=== PATIENT | male | born 2000 | race Two or more races ===

== ENCOUNTER 2023-10-21 05:59 | Emergency (ER) | payer BC, SELFPAY ==
[2023-10-21 06:02] VITALS: BP 127/92
--- NOTE | 2023-10-21 06:25 | ED.GENMED ---
History of Present Illness
General
Chief Complaint: Dental Problem
Source: patient
Exam Limitations: none
Time Seen by Provider: 10/21/23 06:10
Nursing documentation reviewed up to this point in time: agreed with
History of Present Illness
History of Present Illness:
23-year-old male with past medical history of PUD/gastric ulcer presents to the emergency room for evaluation of dental pain. Patient reports onset of symptoms about a week ago and they have been constant and progressive since then. He reports
pain in the right lower molar. He reports some mild swelling. Pain worse with biting and opening his mouth very wide. No clear relieving factors. He denies any associated fevers or chills. He denies any other complaints. Denies any trauma. He
says he had similar symptoms with a dental abscess on the left about a year ago.
Review of Systems
Review of Systems
All Other Systems: ROS reviewed and negative except as documented in HPI and ROS
Constitutional: Denies fever or chills
EENT: Reports other (Dental pain)
Phy Exam
Physical Exam
Physical Exam:
General: Well appearing and non-toxic
HEENT: Airway intact, handling secretions, no significant facial swelling; generally good dentition, no visible fractures or caries, patient has tenderness to percussion right lower molar, no localized swelling intraorally, no tongue elevation,
midline uvula, no oropharyngeal erythema, no tonsillar exudate
Neck: appears supple, full range of motion without pain
CV: No evidence of cyanosis
Resp: No accessory muscle use
Abd: Non-distended
Extremities: No deformities
Neuro: Alert
Psych: Normal affect
Skin: Intact
Scores
Heart Failure Risk
Heart Failure Risk Score: Not Applicable
Heart Score for Chest Pain Patients
STEMI patient?: Not applicable
Withdrawal Assessment of Alcohol
Withdrawal Assessment Completed?: Not applicable
Course
Orders/Labs/Results
Orders:
Orders
10/21/23 06:39
Amoxicillin 875 mg/Clav 125 mg [Augmentin 875 mg/125 mg] 1 tablet PO NOW STA
10/21/23 06:51
Oxycodone [Roxicodone] 5 mg PO NOW STA
Vital Signs
Initial and Last Documented VS:
Initial Vital Signs
Temp Pulse Resp BP Pulse Ox
37.2 C 65 18 127/92 95
10/21/23 06:02 10/21/23 06:02 10/21/23 06:02 10/21/23 06:02 10/21/23 06:02
Last Documented Vital Signs
Temp Pulse Resp BP Pulse Ox
37.2 C 65 18 127/92 95
10/21/23 06:02 10/21/23 06:02 10/21/23 06:02 10/21/23 06:02 10/21/23 06:02
Procedures
Dentalgia
Dental Block: In. Jaden. Block
Tooth Number: 32
Abcess drained?: No
Pt tolerated procedure well w/ no immediate adverse effects?: Yes
MDM/Problems Addressed
Differential Diagnosis Includes:
Dental abscess, dental fracture, dental caries
MDM/Problems Addressed:
23-year-old male presents with right lower molar pain ongoing for the past week. Vital signs normal. Exam as above. Suspect dental infection/periapical abscess. Will treat with antibiotics. Inferior alveolar block for pain control. Patient is
allergic to NSAIDs. Does not have a dentist, will need outpatient follow-up.
Red flags noted on PDMP query, multiple opioid prescriptions in the past year all from different providers in [place]. Dental block for pain control and provided one-time dose of oxycodone here but no opioid prescriptions indicated at this
point. I did personally call [facility] send coordinated prescription for antibiotics. Provided first dose of antibiotics here. He says he does not have a dentist�I coordinated 29/08 dental clinic in [place] for patient to call and make an
appointment. Stable for discharge with follow-up plan as above. All questions answered.
*Pulse Oximetry
Patient hypoxic: no
*Critical Care Note
Total Time (30-74mins, 75-104mins- exclusive of procedures): Not Applicable
Data Reviewed
Source: patient
ED Attending Note
-
Portions of this chart may have been created with voice recognition software.� Occasional wrong word or��sound alike� substitutions may have occurred due to the inherent limitations of voice recognition software.
Discharge Plan
Departure
Patient Disposition: Home (Routine Discharge)
Date of Disposition: 10/21/23
Time of Disposition: 06:49
Patient with high blood pressure during this ER visit?: No
Discharge Problem:
Dental abscess
Instructions: Dental Pain (DC)
Prescriptions:
New
amoxicillin-pot clavulanate 875-125 mg tablet
1 tab PO BID 10 Days Qty: 20 0RF
Activity Restrictions/Additional Instructions:
Thank you for visiting the Emergency Department at [facility].
1. Please schedule a follow up appointment as directed. Call first thing tomorrow morning to make an appointment.
2. If indicated, please take your medications as instructed and indicated on discharge paperwork.
3. If any of your symptoms do not improve, or persist, or become more severe within 6-12 hours, please return to the emergency department for further care.
4. Please return to the emergency department if you develop a headache, neck pain/stiffness, fever greater than 100.4F, chest pain, shortness of breath, persistent nausea, vomiting, slurred speech, difficulty walking, numbness/tingling, weakness,
signs of infection or any other symptoms that are worrisome to you.
Please call [phone] if you have any questions.
Interventions
Interventions:
*Risk Screen - Suicide Last Done: 10/21/23 06:02
*General Assessment Last Done: 10/21/23 06:02
*Neglect/Abuse Screening Last Done: 10/21/23 06:02
Discharge Date and Time
Print Language: CYPRIOT
[2023-10-21] MEDS: AUGMENTIN 875 MG/125 MG 1 TABLET PO (06:47)
--- NOTE | 2023-10-21 07:01 | EDRN ---
Pt says he does not have anyone to call for a ride home. Dr Zuluaga informed and pt told if he does not have a ride home, he cannot take the oxycodone.
== END 2023-10-21 07:00 | disposition home or self-care (01) ==
LOC: EMR 05:59
PROVIDERS: EMERGENCY PHYSICIAN Emergency Medicine
DX: K04.7 Periapical abscess without sinus (principal)
CPT/HCPCS: 99284; 64400